=== PATIENT | male | born 1990 | race Caucasian/White ===

== ENCOUNTER 2021-10-29 18:52 | Emergency (ER) | payer BC, SELFPAY ==
[2021-10-29] VITALS (7 sets, daily range): BP systolic 111–147; BP diastolic 55–83; PULSE 72–90; RESP 16–18; TEMP 37.3–38.2; O2SAT 94–95; BMI 30.7
--- NOTE | 2021-10-29 20:29 | ED_ITS ---
HPI - Abdominal Pain General: Chief Complaint: Abdominal Pain Stated Complaint: Heat exhaustion Time Seen by Provider: 10/29/21 20:26 History of Present Illness: 31-year-old male patient comes in today for complaints of being overheated. 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 Patient felt nauseous today and really weak. Patient had to leave work after feeling like he was going to pass out. Patient reports no chronic medical problems. Patient reports occasionally will drink some alcohol but has not smoked in over a month. Patient does not use any other drugs, medications, or supplements. Associated Symptoms: Reports nausea Review of Systems General: Reports: 10 or more systems reviewed and unremarkable except in HPI and below Card: Denies: chest pain Resp: Denies: dyspnea GI: Reports: abdominal pain and nausea Neuro: Reports: weakness in extremities Physical Exam Const: COMMON NORMALS: alert HENMT: COMMON NORMALS: normocephalic HEAD & SCALP: normocephalic Neck/C-Spine: COMMON NORMALS: full ROM Resp: COMMON NORMALS: normal respiratory effort Cardio: COMMON NORMALS: regular rate RATE: regular rate GI: COMMON NORMALS: Soft to palpation and non-tender PALPATION: Yes Soft to palpation Extremity: COMMON NORMALS: normal to inspection Neuro: SENSORIUM/ORIENTATION: Yes alert Skin: COMMON NORMALS: no rashes or lesions noted GENERAL SKIN EXAM: no r ashes or lesions noted Course Vital Signs: Vital signs: Vital Signs Temperature 100.5 F H 10/29/21 20:36 Pulse Rate 89 10/29/21 21:12 Respiratory Rate 16 10/29/21 21:12 Blood Pressure 118/80 10/29/21 21:12 Pulse Oximetry 94 10/29/21 21:12 MDM - Abdominal Pain Medical Decision Making 51-year-old male patient comes in today for complaints of heat exhaustion. 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 Today patient started feeling ill and nauseous. On exam patient is alert and oriented. Lungs are clear to auscultation. Abdomen soft nontender. Skin is warm and dry. Vital signs are normal. Differential diagnosis includes but not limited to gastroenteritis, heat exhaustion, rhabdomyolysis. CBC was unremarkable. CPK was normal. CMP did note some decreased sodium at 131. Patient was given 1 L of normal saline. Patient was recommended to stay out of the heat tomorrow and then instructed on staying hydrated with sweating. Patient reported understandi ng of care plan need for follow-up or return to ER. Lab Data : 10/29/21 20:50 10/29/21 20:50 Labs/Radiology: Laboratory Results WBC 7.6 10^3/uL (4.0-10.0) 10/29/21 20:50 RBC 5.28 10^6/uL (4.1-5.3) 10/29/21 20:50 Hgb 15.3 g/dL (11.7-16.6) 10/29/21 20:50 Hct 43.6 % (42.0-52.0) 10/29/21 20:50 MCV 82.6 fl (80-94) 10/29/21 20:50 MCH 29.0 pg (28.0-34.0) 10/29/21 20:50 MCHC 35.1 g/dL (30.0-36.0) 10/29/21 20:50 RDW 11.8 % (12.1-15.1) L 10/29/21 20:50 Plt Count 243 10^3/cmm (130-400) 10/29/21 20:50 MPV 10.5 fL (7.4-10.4) H 10/29/21 20:50 Neut % (Auto) 77.6 % 10/29/21 20:50 Lymph % (Auto) 12.2 % 10/29/21 20:50 [place] % (Auto) 9.2 % 10/29/21 20:50 Eos % (Auto) 0.3 % 10/29/21 20:50 Baso % (Auto) 0.3 % 10/29/21 20:50 Neut # (Auto) 5.92 10^3/uL (1.8-7.7) 10/29/21 20:50 Lymph # (Auto) 0.9 10^3/uL (0.8-4.8) 10/29/21 20:50 [place] # (Auto) 0.7 10^3/uL (0.2-0.9) 10/29/21 20:50 Eos # (Auto) 0.0 10^3/uL (0.0-0.8) 10/29/21 20:50 Baso # (Auto) 0.0 10^3/uL (0.0-0.1) 10/29/21 20:50 Nucleated RBC % (auto) 0 % 10/29/21 20:50 Nucleated RBCs # 0.0 /100WBC 10/29/21 20:50 Sodium 131 mmol/L (136-145) L 10/29/21 20:50 Potassium 3.5 mmol/L (3.5-5.1) 10/29/21 20:50 Chloride 94 mmol/L (98-107) L 10/29/21 20:50 Carbon Dioxide 25 mmol/L (22-29) 10/29/21 20:50 Anion Gap 15.5 (5-19) 10/29/21 20:50 BUN 9 mg/dL (6-20) 10/29/21 20:50 Creatinine 0.9 mg/dL (0.7-1.2) 10/29/21 20:50 GFR Calculation 99.8 mL/min (90-130) 10/29/21 20:50 Glucose 126 mg/dL (65-115) H 10/29/21 20:50 Calculated Osmolality 272 mOsm/kg (285-295) L 10/29/21 20:50 Calcium 9.2 mg/dL (8.5-10.5) 10/29/21 20:50 Total Bilirubin 0.3 mg/dL (0.15-1.2) 10/29/21 20:50 AST 18 U/L (0-40) 10/29/21 20:50 ALT 21 U/L (0-41) 10/29/21 20:50 Alkaline Phosphatase 63 IU/L (40-130) 10/29/21 20:50 Creatine Kinase 53 U/L (39-308) 10/29/21 20:50 Total Protein 7.5 g/dL (6.6-8.7) 10/29/21 20:50 Albumin 4.2 g/dL (3.5-5.2) 10/29/21 20:50 Globulin 3.3 g/dL (1.3-4.6) 10/29/21 20:50 Lipase 12 U/L (13-60) L 10/29/21 20:50 Urine Color Yellow (Yellow) 10/29/21 21:01 Urine Appearance Clear (CLEAR) 10/29/21 21:01 Urine pH 6 (5-7) 10/29/21 21:01 Ur Specific [place] 1.010 (1.005-1.030) 10/29/21 21:01 Urine Protein Neg (Negative) 10/29/21 21:01 Urine Glucose (UA) Norm (Normal) 10/29/21 21:01 Urine Ketones Negative (Negative) 10/29/21 21:01 Urine Blood Trace (Negative) H 10/29/21 21:01 Urine Nitrate Negative (Negative) 10/29/21 21:01 Urine Bilirubin Neg (Negative) 10/29/21 21:01 Urine Urobilinogen Norm mg/dL (Negative) 10/29/21 21:01 Ur Leukocyte Esterase Negative (Negative) 10/29/21 21:01 Urine RBC 0-4 /hpf (0-2) H 10/29/21 21:01 Urine WBC 0-4 /hpf (0-5) H 10/29/21 21:01 Ur Squamous Epith Cells 0-4 /hpf (0-5) H 10/29/21 21:01 Amorphous Sediment Not Reportable 10/29/21 21:01 Urine Bacteria Trace /hpf (NONE) 10/29/21 21:01 Discharge Plan Discharge Patient Disposition: Home Clinical Impression: Heat exhaustion, unspecified, initial encounter Condition: Stable Discharge Orders: Discharge ED (Routine); Ordered 10/29/21 Ordered By: Maximo Nesbitt Discharge Diet: Usual diet Discharge Activity: Increase activity as tolerated Patient Instructions: Heat Exhaustion (ED) Activity Restrictions/Additional Instructions: Home and rest. Drink plenty of fluids. Try to avoid the heat of the day is much as possible. Make sure to drink water and Gatorade solution alternating 8 ounces at a time to maintain electrolytes and hydration. Follow-up with primary care as needed. Return to ER for new concerns. 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
[2021-10-29 21:08] LABS: Basophils % 0.3 %; Eosinophils % 0.3 %; Hematocrit 43.6 % (42.0-52.0); Hemoglobin 15.3 g/dL (11.7-16.6); Lymphocytes # 0.9 10^3/uL (0.8-4.8); Lymphocytes % 12.2 %; Mean Corpuscular HGB Conc 35.1 g/dL (30.0-36.0); Mean Corpuscular Volume 82.6 fl (80-94); Mean Platelet Volume 10.5 fL (7.4-10.4); Monocytes # 0.7 10^3/uL (0.2-0.9); Monocytes % 9.2 %; Neutrophils # 5.92 10^3/uL (1.8-7.7); Neutrophils % 77.6 %; Nucleated Red Blood Cells % 0 %; Platelet Count 243 10^3/cmm (130-400); Red Blood Count 5.28 10^6/uL (4.1-5.3); Red Cell Distribution Width 11.8 % (12.1-15.1); White Blood Count 7.6 10^3/uL (4.0-10.0)
[2021-10-29] MEDS: sodium chloride 0.9% 1,000 ML 999 ML IV ×2 (21:10→22:05)
[2021-10-29 21:17] LABS: Add Urine Microscopic? YES; Bilirubin Urine Neg (Negative); Blood Urine Trace (Negative); Glucose Urine UA Norm (Normal); Ketones Urine Negative (Negative); Leukocyte Esterase Urine Negative (Negative); Nitrate Urine Negative (Negative); Protein Urine Neg (Negative); Urine Appearance Clear (CLEAR); Urine Color Yellow (Yellow); Urobilinogen Urine Norm (Negative); pH Urine 6 (5-7)
[2021-10-29 21:18] LABS: Add Urine Culture? No; Bacteria Urine TRACE /hpf; RBC Urine 0-4 /hpf (0-2); Squamous Epithelial Cell Urine 0-4 /hpf (0-5); WBC Urine 0-4 /hpf (0-5)
[2021-10-29 21:23] LABS: Alanine Aminotransferase 21 U/L (0-41); Albumin Level 4.2 g/dL (3.5-5.2); Alkaline Phosphatase 63 IU/L (40-130); Anion Gap 15.5 (5-19); Aspartate Amino Transferase 18 U/L (0-40); Blood Urea Nitrogen 9 mg/dL (6-20); Calcium 9.2 mg/dL (8.5-10.5); Carbon Dioxide 25 mmol/L (22-29); Chloride 94 mmol/L (98-107); Creatine Phosphokinase 53 U/L (39-308); Globulin 3.3 g/dL (1.3-4.6); Glomerular Filtration Rate 99.8 mL/min (90-130); Glucose 126 mg/dL (65-115); Lipase 12 U/L (13-60); Osmolality Calculated 272 mOsm/kg (285-295); Potassium 3.5 mmol/L (3.5-5.1); Sodium 131 mmol/L (136-145); Total Bilirubin 0.3 mg/dL (0.15-1.2); Total Protein 7.5 g/dL (6.6-8.7)
[2021-10-29] MEDS: acetaminophen 500 mg Tablet 1000 MG PO (22:04)
== END 2021-10-29 23:40 | disposition home or self-care (01) ==
PROVIDERS: Emergency Medicine; Emergency Provider Nurse Practitioner Family
DX: T67.5XXA Heat exhaustion, unspecified, initial encounter (principal); X30.XXXA Exposure to excessive natural heat, initial encounter
CPT/HCPCS: 80053; 81001; 82550; 83690; 85025; 96360; 96361; 99284; J7030

== ENCOUNTER 2023-03-05 11:21 | Emergency (ER) | payer BC, SELFPAY ==
[2023-03-05 11:29] VITALS: BP 150/113; PULSE 70; RESP 16; TEMP 36.6; O2SAT 99; BMI 32.1
--- NOTE | 2023-03-05 11:37 | ED_ITS ---
HPI - Dental/Oral General: Chief complaint: Dental/Oral Stated complaint: Swollen tooth, sob Time Seen by Provider: 03/05/23 11:36 Source: patient Mode of arrival: ambulatory Limitations: no limitations History of Present Illness: Patient is a 32-year-old male who presents to ED today with complaint of an impacted left lower third molar. Patient states he has had pain for years but states over the past several days it has been worse and feels like his gums are swollen. Patient reportedly saw Dr. Adams/dentist today and was referred to the emergency department-[facility] for IM abx and a referral to have wisdom teeth extracted (?). He was given a prescription for Clindamycin which she has yet to fill. Patient states he is eating/drinking. He is controlling his secretions. Reports opening his mouth is hard due to pain. He has not noticed any significant facial/neck swelling. MD Complaint: tooth pain Onset (ago): day(s) Duration: constant Severity: moderate Relieving factors: nothing Exacerbating factors: chewing Context: history of dental caries Associated symptoms: Reports no associated symptoms; Denies fever(s) or odynophagia Treatment prior to arrival: none Review of Systems Const: Denies: fever(s), chills, body aches, fatigue or malaise ENMT: Reports: dental pain; Denies: throat pain, odynophagia, swelling of lips/tongue, oral sores, bleeding gums or sinus pain GI: Denies: nausea or vomiting Musc: Denies: neck pain Neuro: Denies: headache(s) Physical Exam Const: COMMON NORMALS: no acute distress, patient oriented x3, no limitations, alert and well nourished GENERAL APPEARANCE: cooperative NUTRITIONAL APPEARANCE: overweight ORIENTATION/CONSCIOUSNESS: Yes awake, Yes oriented to person, Yes oriented to place and Yes oriented to time HENMT: COMMON NORMALS: normocephalic and atraumatic HEAD & SCALP: normal to inspection, normocephalic and atraumatic FACE & SINUS: normal facial exam; no erythema and no edema MOUTH: Normal oral and palatal mucosa present, lip normal and tongue normal TEETH & GINGIVA IMAGES: 1. severely decayed impacted third molar with surrounding gingival inflammation but no abscess formation THROAT: posterior oropharynx normal, tonsils normal and uvula midline Neck/C-Spine: COMMON NORMALS: full ROM, no lymphadenopathy and no meningeal signs GENERAL: Yes normal visual inspection, No anterior neck swelling and No submandibular swelling Resp: COMMON NORMALS: normal respiratory effort and clear to auscultation bilaterally AUSCULTATION: clear to auscultation bilaterally Cardio: COMMON NORMALS: regular rate and regular rhythm RATE: regular rate RHYTHM: regular rhythm Neuro: SUMMER COMA SCALE: document GCS findings [place] coma scale eye opening: Spontaneous [place] coma scale verbal response: Orientated [place] coma scale motor response: Obey commands [place] coma scale total score: 15 COMMON NORMALS: patient oriented x3 and CN's II-XII intact bilaterally SENSORIUM/ORIENTATION: Yes alert, Yes oriented to person, Yes oriented to place and Yes oriented to time MENINGEAL SIGNS: Yes no meningeal signs Course Vital Signs: Vital signs: Vital Signs Temperature 97.8 F 03/05/23 11:29 Pulse Rate 70 03/05/23 11:29 Respiratory Rate 16 03/05/23 11:29 Blood Pressure 150/113 03/05/23 11:29 Pulse Oximetry 99 03/05/23 11:29 Oxygen Delivery Me thod Room Air 03/05/23 11:29 MDM - Dental/Oral Medical Decision Making Patient was given IM antibiotics. He already has a prescription for Clindamycin he can fill and begin taking. There is no abscess formation that I can visualize clinically. Nothing to suggest deep space abscess or the need for emergent imaging. I am not sure why dentist told him to come to the ED for a referral for wisdom tooth extraction. Nonetheless, I will try to have case management maybe get him an appointment with [facility] in [place]. Recommend he contact dentist to see if they can aid in this referral process as well as I'm sure they make referrals for wisdom teeth extraction quite frequently. Return ED precautions given. Differential Diagnosis Likely dental caries and toothache Medical Records I reviewed the patient's medical records. No radiology studies performed this visit Discharge Plan Discharge Patient Disposition: Home Clinical Impression: Impacted third molar tooth Condition: Stable Discharge Orders: Discharge ED (Routine); Ordered 03/05/23 Ordered By: Lidya Herrera Activity Restrictions/Additional Instructions: Fill your prescription for Clindamycin and begin taking it immediately. I have placed a referral for [facility] in [place]. You may also try to contact them to schedule an appointment. Your dentist should also be able to help you find someone to extract your impacted wisdom teeth. You need to return to the emergency department for facial/neck swelling, inability to eat/swallow, inability to control your secretions/saliva, inability or trouble swallowing or breathing, fevers or any other concerns you may have. 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
--- NOTE | 2023-03-11 13:43 | DCPLANNER ---
I attempted to call patient on 03/11/23 at 1343 to see if patient was able to get wisdom tooth extracted or if he still needs referral sen to [facility] in [place]. Left a voicemail at 1344. I faxed referral to [facility] in [place] on 03/11/23 at 1400.
== END 2023-03-05 12:37 | disposition home or self-care (01) ==
PROVIDERS: Emergency Provider Physician Assistant
DX: K01.1 Impacted teeth (principal)
CPT/HCPCS: 96372; 99284; J0561

== ENCOUNTER 2023-11-24 21:33 | Emergency (ER) | payer BC, SELFPAY ==
[2023-11-24 21:35] VITALS: BP 142/102; PULSE 105; RESP 16; TEMP 37.2; O2SAT 95
[2023-11-24 21:41] VITALS: BP 138/98; PULSE 100; RESP 15; O2SAT 96
--- NOTE | 2023-11-24 21:43 | ED_ITS ---
HPI - General Adult 2 General: Chief complaint: General Medical Stated complaint: Dehydrated Time Seen by Provider: 11/24/23 21:39 History of Present Illness: Patient presents to the ER tachycardic thinks he is dehydrated. Patient is working out in heat all day and has no desire to eat or drink anything. Patient does have a headache. Patient said he gets this way about once a year and has to come in for IV fluids. Otherwise patient has no complaints at this time. Review of Systems 2 General: Reports: 10 or more systems reviewed and unremarkable except in HPI and below Physical Exam 2 Const: COMMON NORMALS: no acute distress, average body habitus, patient oriented x3, no limitations, healthy appearing, alert and well nourished HENMT: COMMON NORMALS: normocephalic, atraumatic, hearing grossly normal bilaterally, external ears normal, Normal external nose present and moist oral mucous membranes HEAD & SCALP: normocephalic and atraumatic NOSE: Normal external nose present EXTERNAL EAR: Yes external ears normal Neck/C-Spine: COMMON NORMALS: no JVD Chest: COMMONS NORMALS: normal inspection of the chest and normal palpation of entire chest wall Resp: COMMON NORMALS: normal respiratory effort, No retractions, No use of accessory muscles and clear to auscultation bilaterally AUSCULTATION: clear to auscultation bilaterally Cardio: COMMON NORMALS: no JVD, regular rate, regular rhythm, S1 normal heart sound present, S2 normal heart sound present, No gallops present (Cardio), No clicks present (Cardio), No murmurs present (Cardio) and No rub (Cardio) R ATE: regular rate RHYTHM: regular rhythm HEART SOUNDS: S1 normal heart sound present and S2 normal heart sound present GI: COMMON NORMALS: Normal to inspection, nondistended, normoactive bowel sounds present, Soft to palpation, non-tender, No hepatosplenomegaly present and no masses PALPATION: Yes Soft to palpation and Yes No hepatosplenomegaly present Neuro: COMMON NORMALS: patient oriented x3 SENSORIUM/ORIENTATION: Yes alert Course 2 Vital Signs: Vital signs: Vital Signs Temperature 99.0 F 11/24/23 21:35 Pulse Rate 105 H 11/24/23 21:35 Respiratory Rate 16 11/24/23 21:35 Blood Pressure 142/102 11/24/23 21:35 Pulse Oximetry 95 11/24/23 21:35 Oxygen Delivery Me thod Room Air 11/24/23 21:35 MDM - General Adult Medical Decision Making Patient appears to be dehydrated, he was hydrated with 2 L normal saline which improved his overall condition. Lab work was unremarkable patient will be discharged home and instructed to drink more fluid. Differential Diagnosis Dehydration Medical Records I reviewed the patient's medical records. Lab Data I reviewed the patient's lab results. 11/24/23 22:00 11/24/23 22:00 Laboratory Results WBC 5.97 10^3/uL (3.29-11.43) 11/24/23 22:00 RBC 5.02 10^6/uL (3.85-5.65) 11/24/23 22:00 Hgb 14.90 g/dL (11.27-16.99) 11/24/23 22:00 Hct 43.0 % (37-53) 11/24/23 22:00 MCV 85.7 fl (82-101) 11/24/23 22:00 MCH 29.7 pg (27-33) 11/24/23 22:00 MCHC 34.7 g/dL (30-55) 11/24/23 22:00 RDW 12.5 % (12.1-15.1) 11/24/23 22:00 Plt Count 183 10^3/cmm (157-399) 11/24/23 22:00 MPV 10.9 fL (7.4-10.4) H 11/24/23 22:00 Neut % (Auto) 74.7 % 11/24/23 22:00 Lymph % (Auto) 12.1 % 11/24/23 22:00 [place] % (Auto) 11.9 % 11/24/23 22:00 Eos % (Auto) 0.8 % 11/24/23 22:00 Baso % (Auto) 0.3 % 11/24/23 22:00 Neut # (Auto) 4.46 10^3/uL (1.8-7.7) 11/24/23 22:00 Lymph # (Auto) 0.7 10^3/uL (0.8-4.8) L 11/24/23 22:00 [place] # (Auto) 0.7 10^3/uL (0.2-0.9) 11/24/23 22:00 Eos # (Auto) 0.1 10^3/uL (0.0-0.8) 11/24/23 22:00 Baso # (Auto) 0.0 10^3/uL (0.0-0.1) 11/24/23 22:00 Nucleated RBC % (auto) 0 % 11/24/23 22:00 Nucleated RBCs # 0.0 /100WBC 11/24/23 22:00 Sodium 136 mmol/L (136-145) 11/24/23 22:00 Potassium 4.0 mmol/L (3.5-5.1) 11/24/23 22:00 Chloride 101 mmol/L (98-107) 11/24/23 22:00 Carbon Dioxide 23 mmol/L (22-29) 11/24/23 22:00 Anion Gap 16.0 (5-19) 11/24/23 22:00 BUN 12 mg/dL (6-20) 11/24/23 22:00 Creatinine 0.9 mg/dL (0.7-1.2) 11/24/23 22:00 GFR Calculation 98.4 mL/min (90-130) 11/24/23 22:00 Glucose 94 mg/dL (65-115) 11/24/23 22:00 Calculated Osmolality 282 mOsm/kg (285-295) L 11/24/23 22:00 Calcium 8.6 mg/dL (8.5-10.5) 11/24/23 22:00 Magnesium 1.9 mg/dL (1.7-2.3) 11/24/23 22:00 Total Bilirubin 0.2 mg/dL (0.15-1.2) 11/24/23 22:00 AST 29 U/L (0-40) 11/24/23 22:00 ALT 44 U/L (0-41) H 11/24/23 22:00 Alkaline Phosphatase 81 U/L (40-130) 11/24/23 22:00 Total Protein 7.3 g/dL (6.6-8.7) 11/24/23 22:00 Albumin 4.3 g/dL (3.5-5.2) 11/24/23 22:00 Globulin 3.0 g/dL (1.3-4.6) 11/24/23 22:00 Urine Color Yellow (Yellow) 11/24/23 22:15 Urine Appearance Clear (CLEAR) 11/24/23 22:15 Urine pH 7 (5-7) 11/24/23 22:15 Ur Specific [place] 1.010 (1.005-1.030) 11/24/23 22:15 Urine Protein Neg (Negative) 11/24/23 22:15 Urine Glucose (UA) Norm (Normal) 11/24/23 22:15 Urine Ketones Negative (Negative) 11/24/23 22:15 Urine Blood Neg (Negative) 11/24/23 22:15 Urine Nitrate Negative (Negative) 11/24/23 22:15 Urine Bilirubin Neg (Negative) 11/24/23 22:15 Urine Urobilinogen Neg mg/dL (Negative) 11/24/23 22:15 Ur Leukocyte Esterase Negative (Negative) 11/24/23 22:15 All radiology interpretation(s) finalized by discharge Discharge Plan Discharge Patient Disposition: Home Clinical Impression: Acute dehydration Condition: Stable Discharge Orders: Discharge ED (Routine); Ordered 11/24/23 Ordered By: Max Martinez Patient Instructions: Dehydration - Adult Activity Restrictions/Additional Instructions: Thank you for choosing [facility] for your healthcare needs today. Please realize that you were seen in the emergency department and that we are providing you with an emergency medical screening exam and this may not be a complete and all exclusive of all testing and/or medical workup we may need to determine your element or severity of your illness. It is very important that you follow-up as instructed with your primary care provider or specialist for the additional evaluation and to discuss your medical treatment plan. You may return to the emergency department should you have concerns or if your condition changes or worsens in any way. 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
[2023-11-24] MEDS: sodium chloride 0.9% 1,000 ML 999 ML IV ×2 (21:56→23:39)
[2023-11-24 22:25] LABS: Add Urine Microscopic? NO; Charge for UA Resulting for Rev
[2023-11-24 22:27] LABS: Bilirubin Urine Neg (Negative); Blood Urine Neg (Negative); Glucose Urine UA Norm (Normal); Ketones Urine Negative (Negative); Leukocyte Esterase Urine Negative (Negative); Nitrate Urine Negative (Negative); Protein Urine Neg (Negative); Urine Appearance Clear (CLEAR); Urine Color Yellow (Yellow); Urobilinogen Urine Neg (Negative); pH Urine 7 (5-7)
[2023-11-24 22:33] LABS: Basophils % 0.3 %; Eosinophils # 0.1 10^3/uL (0.0-0.8); Eosinophils % 0.8 %; Lymphocytes # 0.7 10^3/uL (0.8-4.8); Lymphocytes % 12.1 %; Mean Corpuscular HGB Conc 34.7 g/dL (30-55); Mean Corpuscular Hemoglobin 29.7 pg (27-33); Mean Corpuscular Volume 85.7 fl (82-101); Mean Platelet Volume 10.9 fL (7.4-10.4); Monocytes # 0.7 10^3/uL (0.2-0.9); Monocytes % 11.9 %; Neutrophils # 4.46 10^3/uL (1.8-7.7); Neutrophils % 74.7 %; Nucleated Red Blood Cells % 0 %; Platelet Count 183 10^3/cmm (157-399); Red Blood Count 5.02 10^6/uL (3.85-5.65); Red Cell Distribution Width 12.5 % (12.1-15.1); White Blood Count 5.97 10^3/uL (3.29-11.43)
[2023-11-24 22:47] LABS: Alanine Aminotransferase 44 U/L (0-41); Albumin Level 4.3 g/dL (3.5-5.2); Alkaline Phosphatase 81 U/L (40-130); Aspartate Amino Transferase 29 U/L (0-40); Blood Urea Nitrogen 12 mg/dL (6-20); Calcium 8.6 mg/dL (8.5-10.5); Carbon Dioxide 23 mmol/L (22-29); Chloride 101 mmol/L (98-107); Creatinine Clr Calc Pharmacy 146.1919; Glomerular Filtration Rate 98.4 mL/min (90-130); Glucose 94 mg/dL (65-115); Magnesium 1.9 mg/dL (1.7-2.3); Osmolality Calculated 282 mOsm/kg (285-295); Sodium 136 mmol/L (136-145); Total Bilirubin 0.2 mg/dL (0.15-1.2); Total Protein 7.3 g/dL (6.6-8.7)
[2023-11-25 00:34] VITALS: BP 145/98; PULSE 104; RESP 16; TEMP 36.7; O2SAT 98
== END 2023-11-24 23:57 | disposition home or self-care (01) ==
PROVIDERS: Emergency Provider Emergency Medicine
DX: E86.0 Dehydration (principal)
CPT/HCPCS: 80053; 81003; 83735; 85025; 96360; 99284; J7030

== ENCOUNTER → 2024-04-07 11:11 | Outpatient (BNVA) | payer BC, SELFPAY | PROVIDERS: Visit Provider Emergency Medicine | DX: Z20.2 Contact with and (suspected) exposure to infections with a predominantly sexual mode of transmission (principal); Z20.828 Contact with and (suspected) exposure to other viral communicable diseases | CPT/HCPCS: 87491; 87591; 87661 ==